=== PATIENT | male | born 1980 | race African-American/Black ===

== ENCOUNTER 2018-09-13 09:42 | Emergency (ER) | payer MEDICAID ==
[~2018-09-13] VITALS: Ht 182.9 cm; Wt 90.0 kg
[2018-09-13] MEDS ORDERED: FAMOTIDINE 20MG/2ML VIAL IV STA (10:13)
[2018-09-13] MEDS ORDERED: SODIUM CHLORIDE 0.9% 1,000 ML IV ONE (10:13)
[2018-09-13] MEDS ORDERED: MAGNESIUM/ALUMINUM HYDROXIDE/SIMETHICONE 30ML UDC PO STA (10:13)
[2018-09-13] MEDS ORDERED: KETOROLAC 30MG/ML VIAL IV STA (10:13)
[2018-09-13] MEDS ORDERED: ONDANSETRON HCL 4MG/2ML INJ IV STA (10:13)
[2018-09-13 10:25] LABS: CLARITY URINE CLEAR (CLEAR); COLOR URINE YELLOW (YELLOW); KETONES URINE 4+ (NEGATIVE); LEUKOCYTE ESTERASE URINE NEGATIVE (NEGATIVE); NITRITE URINE NEGATIVE (NEGATIVE); OCCULT BLOOD URINE 2+ (NEGATIVE); PH URINE 5.5 (4.5-8.0); PROTEIN URINE TRACE (NEGATIVE); SPECIFIC GRAVITY URINE 1.031 (1.005-1.030)
[2018-09-13 10:30] LABS: HEMATOCRIT. 49.1 % (42.0-52.0); HEMOGLOBIN. 16.9 g/dL (14.0-18.0); MEAN CORPUSCULAR HEMOGLOBIN 27.3 pg (28.0-32.0); MEAN CORPUSCULAR VOLUME 79.6 fL (80.0-94.0); MEAN PLATELET VOLUME 9.3 fl (7.4-10.4); PLATELET 197 x1000/uL (130-400); RED BLOOD CELL COUNT 6.17 mill/uL (4.7-6.1); RED CELL DISTRIBUTION WIDTH 13.8 % (11.6-14.6)
[2018-09-13 10:36] LABS: CHLORIDE 104 mEq/L (98-107)
[2018-09-13 10:37] LABS: INR 1.1; PROTHROMBIN TIME 11.3 sec (9.6-11.0)
[2018-09-13] MEDS ORDERED: MORPHINE SULFATE 4 MG/ML CPJ (NOT FOR IM USE) IV ONE (12:15)
[2018-09-13] MEDS ORDERED: IOHEXOL-350 100 ML BOTTLE ONE (13:01)
[2018-09-13] MEDS ORDERED: IOHEXOL-300 100 ML BOTTLE ONE (13:02)
[2018-09-13 14:44] LABS: PLATELET ESTIMATE NORMAL
[2018-09-13] MEDS ORDERED: CEFTRIAXONE 1 G PREMIX 50 ML IV ONE (14:45)
[2018-09-13] MEDS ORDERED: METOCLOPRAMIDE HCL 10MG/2ML VIAL IV ONE (14:45)
[2018-09-13] MEDS ORDERED: METRONIDAZOLE 500 MG PREMIX 100 ML IV ONE (14:45)
[2018-09-13 16:48] VITALS: BP 135/85
== END 2018-09-13 16:52 | disposition home or self-care (01) ==
LOC: ER 09:52 → EDBEDREQ 14:53 → ER 16:52 → CANBEDREQ 19:12
DX: K52.9 Noninfective gastroenteritis and colitis, unspecified (principal); F12.10 Cannabis abuse, uncomplicated; F17.210 Nicotine dependence, cigarettes, uncomplicated; Z98.890 Other specified postprocedural states
CPT/HCPCS: 36415; 74177; 80053; 81003; 83690; 85025; 85610; 96361; 96365; 96367; 96375; 99284; J0696; J1885; J2270; J2405; J2765; J3490; J7030; Q9967

== ENCOUNTER 2019-02-04 11:08 | Inpatient (IN) | payer MEDICAID ==
[~2019-02-04] VITALS: Ht 172.7 cm; Wt 88.5 kg
[2019-02-04] MEDS ORDERED: SODIUM CHLORIDE 0.9% 1,000 ML IV ONE (11:33)
[2019-02-04] MEDS ORDERED: ONDANSETRON HCL 4MG/2ML INJ IV STA (11:33)
[2019-02-04 12:30] LABS: BASOPHILS % 0.5 % (0.0-2.0); EOSINOPHILS % 1.1 % (0.0-5.0); HEMATOCRIT. 44.1 % (42.0-52.0); HEMOGLOBIN. 15.2 g/dL (14.0-18.0); LYMPHOCYTES % 21.1 % (20.0-50.0); MEAN CORPUSCULAR HEMOGLOBIN 27.7 pg (28.0-32.0); MEAN CORPUSCULAR VOLUME 80.6 fL (80.0-94.0); MEAN PLATELET VOLUME 9.1 fl (7.4-10.4); MONOCYTES % 7.8 % (2.0-8.0); NEUTROPHILS % 69.5 % (40.0-76.0); PLATELET 153 x1000/uL (130-400); RED BLOOD CELL COUNT 5.47 mill/uL (4.7-6.1); RED CELL DISTRIBUTION WIDTH 13.4 % (11.6-14.6)
[2019-02-04 12:37] LABS: INR 1.1; PROTHROMBIN TIME 11.6 sec (9.6-11.0)
[2019-02-04 12:42] LABS: CHLORIDE 109 mEq/L (98-107)
[2019-02-04] MEDS ORDERED: ONDANSETRON HCL 4MG/2ML INJ IV PRN (17:15)
[2019-02-04] MEDS ORDERED: ACETAMINOPHEN 325MG TABLET PO PRN (17:15)
[2019-02-04 17:17] VITALS: BP 127/80
[2019-02-04] MEDS: AMLODIPINE 5MG TABLET PO SCH (18:29)
[2019-02-04 20:00] VITALS: BP_SYST 118; BP_SYST 135; BP_SYST 139; BP_DIAS 84; BP_DIAS 90; BP_DIAS 95
[2019-02-05] VITALS: BP_SYST 107; BP_SYST 119; BP_SYST 135; BP_DIAS 59; BP_DIAS 90; BP_DIAS 94
[2019-02-05 04:00] VITALS: BP 107/72
[2019-02-05 08:00] VITALS: BP 139/94
[2019-02-05] MEDS: AMLODIPINE 5MG TABLET PO SCH (09:32)
[2019-02-05 11:12] VITALS: BP 139/94
== END 2019-02-05 11:35 | disposition home or self-care (01) | DRG 48 ==
LOC: ER 11:08 → EDBEDREQ 11:36 → 8WST 13:45 → EDBEDREQ 13:50 → ENRESERV 15:24
PROVIDERS: ADMIT Internal Medicine; ATTEND Internal Medicine
DX: G90.8 Other disorders of autonomic nervous system (principal); E87.8 Other disorders of electrolyte and fluid balance, not elsewhere classified; I10 Essential (primary) hypertension; E78.5 Hyperlipidemia, unspecified; Z79.899 Other long term (current) drug therapy
CPT/HCPCS: 36415; 71045; 80061; 84443; 84484; 93005; 93306; 99291; J2405; J7030

== ENCOUNTER 2019-02-27 07:23 | Emergency (ER) | payer MEDICAID ==
[~2019-02-27] VITALS: Ht 175.3 cm; Wt 82.0 kg
[2019-02-27] MEDS ORDERED: SODIUM CHLORIDE 0.9% 1,000 ML IV ONE (07:54)
[2019-02-27] MEDS ORDERED: ONDANSETRON HCL 4MG/2ML INJ IV STA (07:54)
[2019-02-27] MEDS ORDERED: MECLIZINE 25MG TABLET PO ONE (08:00)
[2019-02-27 08:14] LABS: EOSINOPHILS % 2.2 % (0.0-5.0); HEMATOCRIT. 42.5 % (42.0-52.0); HEMOGLOBIN. 14.5 g/dL (14.0-18.0); LYMPHOCYTES % 30.1 % (20.0-50.0); MEAN CORPUSCULAR HEMOGLOBIN 27.2 pg (28.0-32.0); MEAN CORPUSCULAR VOLUME 79.6 fL (80.0-94.0); MEAN PLATELET VOLUME 8.8 fl (7.4-10.4); MONOCYTES % 12.2 % (2.0-8.0); NEUTROPHILS % 54.5 % (40.0-76.0); PLATELET 165 x1000/uL (130-400); RED BLOOD CELL COUNT 5.33 mill/uL (4.7-6.1); RED CELL DISTRIBUTION WIDTH 13.3 % (11.6-14.6)
[2019-02-27 08:20] LABS: CHLORIDE 105 mEq/L (98-107)
[2019-02-27 09:45] VITALS: BP 138/87
[2019-02-27] MEDS ORDERED: ASPIRIN 325MG EC TABLET PO ONE (10:00)
[2019-02-27 10:06] LABS: INR 1.1; PROTHROMBIN TIME 11.3 sec (9.6-11.0)
[2019-02-27 10:35] LABS: *AMPHETAMINES SCREEN URINE NEGATIVE (NEGATIVE); *BARBITURATES SCREEN URINE NEGATIVE (NEGATIVE); *BENZODIAZEPINES SCREEN URINE NEGATIVE (NEGATIVE); *COCAINE SCREEN URINE NEGATIVE (NEGATIVE)
[2019-02-27 10:36] LABS: CANNABINOID URINE SCREEN PRESUMTIVE POSITIVE (NEGATIVE); METHADONE URINE SCREEN NEGATIVE (NEGATIVE); OPIATES URINE SCREEN NEGATIVE (NEGATIVE); PHENCYCLIDINE URINE SCREEN NEGATIVE (NEGATIVE)
== END 2019-02-27 10:12 | disposition left against medical advice (07) ==
LOC: ER 07:30 → EDBEDREQ 10:00 → ER 10:12 → ENRESERV 17:18 → CANRESERV 17:18 → CANBEDREQ 23:48
DX: R42 Dizziness and giddiness (principal); R11.2 Nausea with vomiting, unspecified; R00.1 Bradycardia, unspecified; G89.29 Other chronic pain; R11.10 Vomiting, unspecified; F12.10 Cannabis abuse, uncomplicated; M54.9 Dorsalgia, unspecified
CPT/HCPCS: 36415; 71045; 80053; 80305; 84484; 85025; 85610; 93005; 96361; 96374; 99284; J2405; J7030; J8597; Z7610

== ENCOUNTER 2020-11-22 08:41 | Emergency (ER) | payer MEDICAID, OTHER ==
[~2020-11-22] VITALS: Ht 177.8 cm; Wt 81.0 kg
[2020-11-22 08:45] VITALS: BP 145/86
[2020-11-22] MEDS ORDERED: TOPUD PO (09:16)
[2020-11-22] MEDS ORDERED: HYDR26CR2 TP (09:16)
[2020-11-22] MEDS ORDERED: ACETAMINOPHEN 325MG TABLET PO ONE (09:30)
== END 2020-11-22 09:35 | disposition home or self-care (01) ==
LOC: ER 08:41
DX: K64.4 Residual hemorrhoidal skin tags (principal); I10 Essential (primary) hypertension; F12.10 Cannabis abuse, uncomplicated; Z88.0 Allergy status to penicillin
CPT/HCPCS: 99282

== ENCOUNTER 2025-02-12 08:06 | Emergency (ER) | payer MEDICAID ==
[~2025-02-12] VITALS: Ht 180.3 cm; Wt 87.0 kg
[~2025-02-12 08:06] MED LIST: HYDR26CR2 TP; TOPUD PO
[2025-02-12 08:11] VITALS: O2SAT 98
[2025-02-12] MEDS: ONDANSETRON 4MG ODT PO ONE (08:28)
[2025-02-12] MEDS: MAGNESIUM/ALUMINUM HYDROXIDE/SIMETHICONE 30ML UDC PO ONE (08:28)
[2025-02-12] MEDS: FAMOTIDINE 20MG TABLET PO ONE (08:28)
[2025-02-12 08:34] LABS: HEMATOCRIT. 39.0 % (42.0-52.0); HEMOGLOBIN. 13.2 g/dL (14.0-18.0); MEAN PLATELET VOLUME 8.8 fl (7.4-10.4); PLATELET 217 x1000/uL (130-400); RED BLOOD CELL COUNT 4.65 mill/uL (4.7-6.1); RED CELL DISTRIBUTION WIDTH 14.9 % (11.6-14.6)
[2025-02-12 08:55] LABS: CREATININE 1.2 mg/dL (0.6-1.3)
[2025-02-12 08:56] LABS: UREA NITROGEN BLOOD 7 mg/dL (9-23)
[2025-02-12 08:57] LABS: PROTEIN TOTAL 6.6 g/dL (6.0-8.3)
[2025-02-12 08:58] LABS: ASPARTATE AMINOTRANSFERASE 20 IU/L (<34); BILIRUBIN DIRECT 0.5 mg/dL (<=3.0); BILIRUBIN TOTAL 1.4 mg/dL (0.1-1.0)
[2025-02-12 09:19] LABS: CLARITY URINE CLEAR (CLEAR); COLOR URINE ORANGE (YELLOW); GLUCOSE URINE NEGATIVE (NEGATIVE); KETONES URINE NEGATIVE (NEGATIVE); LEUKOCYTE ESTERASE URINE NEGATIVE (NEGATIVE); NITRITE URINE NEGATIVE (NEGATIVE); OCCULT BLOOD URINE TRACE (NEGATIVE); PH URINE 5.5 (4.5-8.0); PROTEIN URINE NEGATIVE (NEGATIVE); SPECIFIC GRAVITY URINE 1.008 (1.005-1.030); UROBILINOGEN URINE 0.2 E.U./dL (0.2-1.0)
[2025-02-12] MEDS ORDERED: METR-167 MT (09:43)
[2025-02-12] MEDS ORDERED: CIPR750T4 MT (09:43)
[2025-02-12] MEDS ORDERED: LOPE2CAP MT (09:43)
[2025-02-12 09:49] VITALS: BP 122/80; PULSE 70; RESP 16; TEMP 36.9; O2SAT 98
[2025-02-12 09:58] LABS: BAND% 9.0 % (1.0-6.0); LYMPHOCYTES % MANUAL 26.0 % (20.0-50.0); MONOCYTES % MANUAL 22.0 % (2.0-8.0); NEUTROPHILS % MANUAL 43.0 % (45.0-75.0)
[2025-02-12 09:59] LABS: PLATELET ESTIMATE NORMAL
[2025-02-12 10:03] LABS: SQUAMOUS EPITHELIAL CELL URINE FEW /lpf (RARE/1+)
[2025-02-12 10:04] LABS: BACTERIA URINE NONE SEEN
[2025-02-12 10:05] LABS: RBC URINE NONE SEEN /hpf (0-2); WBC URINE 0-2 /hpf (0-2)
== END 2025-02-12 09:54 | disposition home or self-care (01) ==
LOC: ER 08:06
DX: R19.7 Diarrhea, unspecified (principal); I10 Essential (primary) hypertension; Z88.0 Allergy status to penicillin
CPT/HCPCS: 99284; 74176; 80076; 80048; 81003; 85025; 36415; Q0162